=== PATIENT | male | born 1960 | race Caucasian/White ===

== ENCOUNTER 2019-09-17 20:33 | Emergency (ER) | payer MEDICARE, OTHER ==
--- NOTE | 2019-09-17 21:15 | EDM.PDOC ---
ED HPI GENERAL MEDICAL PROBLEM - General Chief Complaint: Respiratory Problem Stated Complaint: SOB,COUGH Time Seen by Provider: 09/17/19 20:43 Source of Information: Reports: Patient History Limitations: Reports: No Limitations - History of Present Illness INITIAL COMMENTS - FREE TEXT/NARRATIVE: Patient presents with severe cough and cough-related chest pain for 20 minutes just before ER arrival. He was coughing really hard he says and was coughing up black phlegm from exposure to grain dust two days ago. He wanted to get it all out and after coughing hard his chest started to feel raw and painful. The cough and pain have subsided completely now. Patient says he became concerned about possible meza virus with the severe cough. He denies fever or likely exposure but was in [place] one week ago and lives in [place] but is here working. He had similar symptoms about a week ago and both episodes were following exposure to significant grain dust at work. He smokes but isn't aware of any diagnoses of COPD, emphysema or asthma. He has high blood pressure and normally takes Lisinopril 20 mg daily but ran out and hasn't gotten his PCP to send a Rx up here. midsternal Pain Score (Numeric/FACES): 1 - Related Data Allergies Allergy/AdvReac Type Severity Reaction Status Date / Time No Known Allergies Allergy Verified 09/17/19 21:02 Home Meds: Home Meds Lisinopril [Zestril] 20 mg PO DAILY 09/17/19 [History] Social & Family History - Tobacco Use Smoking Status *Q: Current Every Day Smoker Years of Tobacco use: 35 Packs/Tins Daily: 0.5 - Caffeine Use Caffeine Use: Reports: Coffee - Recreational Drug Use Recreational Drug Use: No ED ROS GENERAL - Review of Systems Review Of Systems: See Below Constitutional: Denies: Fever, Chills, Malaise, Weakness HEENT: Denies: Ear Pain, Throat Pain, Throat Swelling, Vision Change Respiratory: Reports: Shortness of Breath, Cough Cardiovascular: Reports: Chest Pain. Denies: Lightheadedness, Syncope Endocrine: Denies: Fatigue GI/Abdominal: Denies: Abdominal Pain, Vomiting : Denies: Dysuria Musculoskeletal: Denies: Neck Pain, Shoulder Pain, Arm Pain, Back Pain Skin: Denies: Cyanosis, Jaundice, Mottled, Pallor, Diaphoresis Neurological: Denies: Confusion, Headache, Syncope, Trouble Speaking, Difficulty Walking Psychiatric: Denies: Agitation, Anxiety, Confusion ED EXAM, GENERAL - Physical Exam Exam: See Below Exam Limited By: No Limitations General Appearance: Alert, WD/WN, No Apparent Distress Eye Exam: Bilateral Eye: EOMI, Normal Inspection, PERRL Ears: Normal External Exam, Hearing Grossly Normal Nose: Normal Inspection, No Blood Throat/Mouth: Normal Inspection, Normal Lips, Normal Voice, No Airway Compromise Head: Atraumatic, Normocephalic Neck: Normal Inspection, Full Range of Motion Respiratory/Chest: No Respiratory Distress, Lungs Clear, Normal Breath Sounds, No Accessory Muscle Use. No: Crackles, Rales, Rhonchi, Wheezing, Stridor Cardiovascular: Regular Rate, Rhythm, No Murmur GI/Abdominal: Soft, Non-Tender, No Organomegaly Back Exam: Normal Inspection, Full Range of Motion Neurological: Alert, Oriented, Normal Cognition, No Motor/Sensory Deficits Psychiatric: Normal Affect, Normal Mood Skin Exam: Warm, Dry, Intact, Normal Color, No Rash Course - Vital Signs Last Recorded V/S: Last Vital Signs Temp 98.2 F 09/17/19 20:33 Pulse 100 09/17/19 20:33 Resp 16 09/17/19 20:33 BP 165/83 H 09/17/19 21:00 Pulse Ox 100 09/17/19 20:33 - Orders/Labs/Meds Orders: Active Orders 24 hr Category Date Time Status Chest 1V Frontal [CR] Routine Exams 09/17/19 21:10 Ordered CORONAVIRUS COVID-19 PCR PHL [MREF] Stat Lab 09/17/19 20:32 Received Labs: Laboratory Tests 09/17/19 09/17/19 Range/Units 20:32 20:32 WBC 9.39 (5.00-10.00) 10^3/uL RBC 5.15 (4.50-6.00) 10^6/uL Hgb 15.4 (13.0-17.0) g/dL Hct 45.3 (40.0-52.0) % MCV 88.0 (82.0-92.0) fL MCH 29.9 (27.0-31.0) pg MCHC 34.0 (32.0-36.0) g/dL RDW 14.7 H (11.5-14.5) % Plt Count 289 (150-400) 10^3/uL MPV 9.4 (7.4-10.4) fL Immature Gran % (Auto) 0.2 (0.0-5.0) % Neut % (Auto) 49.3 L (50.0-70.0) % Lymph % (Auto) 35.3 (20.0-40.0) % [place] % (Auto) 8.7 H (2.0-8.0) % Eos % (Auto) 6.0 H (1.0-3.0) % Baso % (Auto) 0.5 (0.0-1.0) % Immature Gran # (Auto) 0.02 (0.00-0.50) 10^3/uL Neut # (Auto) 4.63 (2.50-7.00) 10^3/uL Lymph # (Auto) 3.31 (1.00-4.00) 10^3/uL [place] # (Auto) 0.82 H (0.10-0.80) 10^3/uL Eos # (Auto) 0.56 H (0.10-0.30) 10^3/uL Baso # (Auto) 0.05 (0.00-0.10) 10^3/uL Sodium 143 (136-145) mmol/L Potassium 4.0 (3.3-5.3) mmol/L Chloride 105 (98-115) mmol/L Carbon Dioxide 21.8 (21.0-32.0) mmol/L Anion Gap 20.2 H (5-15) mmol/L BUN 18 (6-25) mg/dL Creatinine 0.79 (0.51-1.17) mg/dL Est Cr Clr Drug Dosing 105.91 mL/min Estimated GFR (MDRD) > 60 mL/min Glucose 122 H (75 - 99) mg/dL Calcium 8.8 (8.7-10.3) mg/dL Total Bilirubin 0.4 (0.2-1.0) mg/dL AST 30 (15-37) U/L ALT 28 (12-78) U/L Alkaline Phosphatase 71 (46-116) IU/L Total Protein 7.0 (6.4-8.2) g/dL Albumin 3.72 (3.00-4.80) g/dL - Re-Assessments/Exams Free Text/Narrative Re-Assessment/Exam: 09/17/19 21:55 Labs and CXR good. EKG shows HR of 77 and changes most likely chronic as he shows no signs of [place] on history and exam. He is feeling fine now and hasn't had any return of cough or chest pain. We discussed findings and expectations and he will self-quarantine in his motel room until the covid test is back. Discharged to home in stable condition. Departure - Departure Time of Disposition: 21:50 Disposition: Home, Self-Care 01 Condition: Good Clinical Impression: Cough - Discharge Information Instructions: Shortness of Breath, Adult, Omen-ah-Jblz, Cough, Adult, Easy-to- Read Forms: ED Department Discharge Additional Instructions: 1. Drink 8 cups of water daily. 2. Follow quarantine protocol in your hotel room until meza virus test is back in about two days. 3. 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 4. Follow up with your PCP for treatment of your blood pressure when you get back home. Sepsis Event Note - Evaluation Sepsis Screening Result: No Definite Risk - Focused Exam Vital Signs: Vital Signs Temp Pulse Resp BP Pulse Ox 09/17/19 21:00 165/83 H 09/17/19 20:33 98.2 F 100 16 208/107 H 100 Date Exam was Performed: 09/17/19 Time Exam was Performed: 21:59 - My Orders Last 24 Hours: My Active Orders 09/17/19 20:32 CORONAVIRUS COVID-19 PCR PHL [MREF] Stat 09/17/19 21:10 Chest 1V Frontal [CR] Routine - Assessment/Plan Last 24 Hours: My Active Orders 09/17/19 20:32 CORONAVIRUS COVID-19 PCR PHL [MREF] Stat 09/17/19 21:10 Chest 1V Frontal [CR] Routine
[2019-09-17 21:17] LABS: ANION GAP 20.2 mmol/L (5-15); CHLORIDE,CL 105 mmol/L (98-115); SODIUM,NA 143 mmol/L (136-145)
--- NOTE | 2019-09-18 07:36 | CR ---
[id number] RAD/RAD Chest PA or AP 1V EXAM: SINGLE VIEW CHEST. INDICATION: COUGH SHORTNESS OF BREATH COMPARISON: NO PREVIOUS SIMILAR EXAM IS AVAILABLE FINDINGS: There is no pneumonia or edema The cardiac silhouette is prominent There is an old right clavicular fracture IMPRESSION: NO PNEUMONIA OR EDEMA William Schilling MD 09/18/19 0735 Thank you for allowing us to participate in the care of your patient.
== END 2019-09-17 21:22 | disposition home or self-care (01) ==
LOC: KA.ED 20:33
DX: R05 Cough (principal); F17.210 Nicotine dependence, cigarettes, uncomplicated; Z79.899 Other long term (current) drug therapy; Z20.828 Contact with and (suspected) exposure to other viral communicable diseases
CPT/HCPCS: 36415; 71045; 80053; 85025; 93005; 99283; 99284; U0002